=== PATIENT | male | born 1970 | race Caucasian/White ===

== ENCOUNTER 2022-02-07 15:04 | Outpatient (REF) | payer OTHER, SELFPAY ==
--- NOTE | ~2022-02-07 | XR_ITS ---
EXAMINATION: XR CHEST CLINICAL INFORMATION: Unspecified asthma. COMPARISON: None TECHNIQUE: 2 views of the chest were obtained. FINDINGS: The lungs are hyperinflated but clear of acute pneumonic process. The heart size and pulmonary vascularity is normal. No gross bony abnormality seen. XR/XR chest 2V IMPRESSION: Unremarkable chest examination.
== END 2022-02-07 15:05 | disposition home or self-care (01) ==
LOC: HO.HMGCX 15:04
PROVIDERS: Visit Provider Internal Medicine
DX: J45.909 Unspecified asthma, uncomplicated (principal)
CPT/HCPCS: 71046

== ENCOUNTER 2023-07-02 13:44 | Outpatient (AMB) | payer OTHER, SELFPAY ==
--- NOTE | 2023-07-02 13:46 | MHC.OFFWIV ---
Intake Vital Signs 07/02/23 13:52 Height 5 ft 11 in Weight 123.916 kg BMI 38.1 BP 128/64 Blood Pressure Location Lt brachial Position Sitting Pulse 95 Pulse Source Pulse Oximeter Temp 97.6 F Temp Source Temporal Artery Scan Pulse Oximetry (%) 96 Oxygen Delivery Method Room Air Intake Visit Reasons: EP Wheezing, Cough (masked) Intake Note: Pt is here c/o wheezing and cough for the last two days. Pt is requesting a work note for 07/03/23. Patient Tobacco Use Status: Never used Tobacco Allergies No Known Allergies Allergy (Verified 07/02/23 13:47) Do you need a note to return to daycare/school/sports/work: Yes HPI HPI Comments History of Present Illness Details [id number] 53-year-old male presents with fatigue malaise, wheezing, productive cough for the past 2 days, patient has history of asthma, tells me this feels like his typical asthma exacerbation with a URI starting. Patient has albuterol, montelukast, Symbicort at home. Patient denies chest pain, shortness of breath, nausea, vomiting, abdominal pain, fevers, chills, recent sick contacts, headache, vision changes, dizziness and weakness. Physical exam with significant expiratory wheezes throughout all lung dubon Likely viral illness versus acute asthma exacerbation vs bronchitis (most likely). Unlikely PE, pneumonia, ACS. No signs of acute respiratory distress at this time Will give duoneb here Plan prednisone, albuterol, doxy. Will send benzonatate for cough. Educated patient on diagnosis and treatment plan, answered all question, patient verbalizes understanding. At this time patient will be discharged home, advised to return with new or worsening symptoms. Educated on worrisome signs and symptoms and when to return. At this time I feel comfortable discharge home. [facility] Social History Patient Tobacco Use Status: Never used Tobacco Review of Systems Const Details: Constitutional : No Weight loss, No Fever, No Chills, + Fatigue, + Malaise ENT/Mouth : No sore throat, No Rhinorrhea Eyes: No Eye Pain, No Swelling, No Redness Cardiovascular : No Chest Pain, No SOB, No Dyspnea on Exertion, No Orthopnea, No Edema, No Palpitations Respiratory : + Cough, + Sputum, + Wheezing Gastrointestinal : No Nausea, No Vomiting, No Diarrhea, No Constipation, No abdominal Pain, No Hematochezia, No Melena Genitourinary : No Dysuria, No Urinary Frequency, No Hematuria, Musculoskeletal : No joint pain, No Myalgias, No Joint Swelling Skin : No Skin Lesions, No rash Neuro : No Weakness, No Numbness, No Dizziness, No Headache Psych : No Anxiety/Panic, No Depression All other systems reviewed and are negative All systems reviewed & are unremarkable except as noted in HPI and below Physical Exam Vital Signs: Last Vital Signs Temp 97.6 F 07/02/23 13:52 Pulse 95 07/02/23 13:52 BP 128/64 07/02/23 13:52 Pulse Ox 96 07/02/23 13:52 Oxygen Delivery Method Room Air 07/02/23 13:52 BMI result Body Mass Index 38.1 vss Appearance: Alert.? Oriented X3.? No acute distress.? Head: Normocephalic, atraumatic, no step-offs or deformities Eyes: Pupils equal, round and reactive to light.?? CVS: Normal heart rate and rhythm.? Pulses normal.? Respiratory: No respiratory distress.? Breath sounds w/ significant expiratory wheeze b/l throughout all lung dubon. Speaking in full sentences no use of accessory muscles Abdomen: Soft and nontender.? Skin: Skin warm and dry.? Normal skin color.? Normal skin turgor.? Extremities: No lower extremity edema.? No calf ttp. 5/5 strength to bilateral upper and lower extremities Back: No midline tenderness, no C-spine tenderness, full range of motion, no CVA tenderness bilaterally Neuro: Oriented X 3.? No motor deficit.? No sensory deficit. CN 2-12 intact Assessment & Plan Assessment & Plan (1) Bronchitis: Code(s): J40 - Bronchitis, not specified as acute or chronic Plan Take your medications as prescribed. If you were prescribed antibiotics today, it is important that you take your medication to their entirety, do not skip any doses, do not finish them early. Follow-up with your primary care provider this week. Return to the emergency department with new or worsening symptoms. Such as fevers, chills, chest pain, shortness of breath, nausea, vomiting, dizziness, headache, vision changes, lethargy In case of emergency call 911 Please closely monitor your sugars have they go up it is likely secondary to acute steroid use, if they are greater than 400 or 500 or if you have symptoms of hyperglycemia please seek medical attention Orders: Orders AMB Nebulizer Treatment Today J40 - Bronchitis, not specified as acute or chronic Medications: New ipratropium-albuterol 0.5 mg-3 mg(2.5 mg base)/3 mL 3 mL inhalation ONCE 3 mL 0RF J40 - Bronchitis, not specified as acute or chronic prednisone 40 mg (2 x 20 mg) PO DAILY 5 days 10 tabs 0RF albuterol sulfate 90 mcg/actuation 2 puffs inhalation Q6H PRN 6.7 grams 0RF shortness of breath or wheezing benzonatate 100 mg PO BID PRN 14 caps 0RF cough doxycycline hyclate 100 mg PO BID 7 days 14 caps 0RF Coding Level of Care Code Est Pt Level 3 (18341) Diagnoses Bronchitis J40
[2023-07-02 13:52] VITALS: BP 128/64; PULSE 95; TEMP 36.4; O2SAT 96; BMI 38.1
== END 2023-07-02 14:19 | disposition home or self-care (01) ==
PROVIDERS: PCP Internal Medicine; Visit Provider Physician Assistant
DX: J40 Bronchitis, not specified as acute or chronic (principal)
CPT/HCPCS: 94640; 99213; J7620

== ENCOUNTER 2023-12-18 12:06 | Outpatient (AMB) | payer OTHER, SELFPAY ==
[2023-12-18 12:07] VITALS: BP 144/82; PULSE 83; TEMP 36.6; O2SAT 90; BMI 39.5
--- NOTE | 2023-12-18 12:07 | AM.OFFWIN_ITS ---
Intake Vital Signs 3 12/18/23 12:07 Height 5 ft 11 in Weight 283 lb 6 oz BMI 39.5 BP 144/82 H Blood Pressure Location Rt brachial Position Sitting Pulse 83 Pulse Source Pulse Oximeter Temp 97.9 F Temp Source Oral Pulse Oximetry (%) 90 L Oxygen Delivery Method Room Air Intake Visit Reasons: EP RT eye staff infection swollen Intake Note: Pt is here today for Rt eye swollen, pt states he noticed it yesterday. Rt eye burn and itches and also sore. Patient Tobacco Use Status: Never used Tobacco Allergies No Known Allergies Allergy (Verified 12/18/23 12:12) Medication List - Last Reconciled 12/18/23 by Kaci Vazquez, [place] albuterol sulfate 90 mcg/actuation 2 puffs inhalation Q6H PRN albuterol sulfate 90 mcg/actuation 2 puffs PO Q4H PRN erythromycin 1 appl ophthalmic (eye) DAILY 7 days fluticasone propionate 50 mcg/actuation (Allergy Relief (fluticasone)) 1 spray intranasal BID montelukast 10 mg PO DAILY Symbicort 80-4.5 mcg/actuation (budesonide-formoterol) 2 puffs inhalation BID NS Do you need a note to return to daycare/school/sports/work: No HPI HPI Comments 2 History of Present Illness0 Details 53 y/o male patient presents to walk in clinic with c/o right eye pain, redness and swelling. Reports that symptoms started 3 days ago. Denies vision changes. Reports pain at 4/10 on painscale. Currently on Clindamycin dose for 10 days due to Toe infection. [facility] Social History Patient Tobacco Use Status: Never used Tobacco Review of Systems Const Denies body aches, Denies chills, Denies headache(s) and Denies lethargy Eyes Denies blind spots, Denies blurry vision, Denies exophthalmos, Denies change in vision, Denies diplopia, Reports eye discharge, Reports irritation, Denies loss of peripheral vision, Denies loss of vision, Reports eye pain, Denies seeing flashes and Denies photophobia ENT Reports Normal hearing present, Denies dizziness, Denies ear discharge, Denies otalgia, Denies headache(s) and Denies hoarseness Neuro Reports Normal hearing present, Denies dizziness, Denies headache(s) and Denies loss of vision Physical Exam Vital Signs: Last Vital Signs Temp 97.9 F 12/18/23 12:07 Pulse 83 12/18/23 12:07 BP 144/82 H 12/18/23 12:07 Pulse Ox 90 L 12/18/23 12:07 Oxygen Delivery Method Room Air 12/18/23 12:07 BMI result Body Mass Index 39.5 Const General: comfortable and no acute distress HEENT Head: Yes normocephalic Ears: external ears normal and TM's normal bilaterally General nose exam: Normal nasal mucous membranes and turbinates present Face and sinus: Yes sinuses nontender, Yes face symmetric and Yes erythema (right eye and orbital) Face images: 2 1. Swelling, redness and mild tenderness. Mouth: moist mucous membranes Eyes Periorbital: periorbital findings abnormal right periorbital swelling, periorbital tenderness and periorbital erythema; no crepitus Eyelids: Yes eyelid abnormality (right upper eyelid swelling with redness) Conjunctivae: conjunctival abnormal right conjunctival injection Sclerae: scleral abnormal right scleral exudate Corneas: corneas abnormal on the right Pupils: Equal, round and reactive pupils present EOM: EOMs intact bilaterally Direct Ophthalmoscopy: No photophobia Eyes/upper lids images: 2 1. Swollen right upper eyelid and redness Resp Effort & Inspection: normal respiratory effort Cardio Rate: regular rate Rhythm: regular rhythm Neuro Cranial nerves: Yes Equal, round and reactive pupils present and Yes Normal hearing present Assessment & Plan Assessment & Plan (1) Blepharitis of eyelid of right eye: Code(s): H01.003 - Unspecified blepharitis right eye, unspecified eyelid Qualifiers: Blepharitis type: unspecified type Eyelid: upper Qualified Code(s): H 01.001 - Unspecified blepharitis right upper eyelid Plan: -Eye Abx x 7 days - Instill ~1 cm ribbon into affected eye - Wash eye with warm clean water - Warm compress - Rest - Wash hands frequently Plan - Will Rx Erythro Oint x 7 days - Apply a thin layer before bedtime - Wash hands frequently with soap and water - Warm compre on the eye - Reports any severe pain, headaches and vision changes. Medications: New 2 erythromycin Instill ~1 cm ribbon into the affected eye before Bedtime. 1 appl ophthalmic (eye) DAILY 7 days 3.5 grams 1RF eye infection H01.001 - Unspecified blepharitis right upper eyelid Coding Level of Care Code Est Pt Level 3 (56173) Diagnoses Blepharitis of right upper eyelid, unspecified type H01.001 Blepharitis type: unspecified type Eyelid: upper Time Spent (min) 15
== END 2023-12-18 12:40 | disposition home or self-care (01) ==
PROVIDERS: PCP Internal Medicine; Visit Provider Nurse Practitioner Family
DX: H01.001 Unspecified blepharitis right upper eyelid (principal)
CPT/HCPCS: 99213

== ENCOUNTER 2024-02-23 13:11 | Outpatient (AMB) | payer OTHER, SELFPAY ==
[2024-02-23 13:14] VITALS: BP 150/80; PULSE 86; TEMP 36.6; O2SAT 96; BMI 38.9
--- NOTE | 2024-02-23 13:14 | AM.OFFWIN_ITS ---
Intake Vital Signs 02/23/24 13:14 Height 5 ft 11 in Weight 279 lb BMI 38.9 BP 150/80 H Blood Pressure Location Lt brachial Position Sitting Pulse 86 Pulse Source Pulse Oximeter Temp 97.8 F Temp Source Temporal Artery Scan Pulse Oximetry (%) 96 Oxygen Delivery Method Room Air Intake Visit Reasons: EP Congestion, Wheezing Intake Note: pt is here today for congestion and wheezing started 2 days ago Patient Tobacco Use Status: Never used Tobacco Allergies Penicillins Allergy (Mild, Verified 02/23/24 13:18) hives Do you need a note to return to daycare/school/sports/work: Yes HPI HPI Comments History of Present Illness Details Patient presents to the walk in for 1 week cough, congestion Two days ago steroid up with wheezing, has been using albuterol inhaler and Symbicort without improvement of symptoms Denies fever, chest pain, palpitations, syncope, weakness Denies headache, ear pain, sore throat. Reports history of upper respiratory infection/bronchitis in the past that have responded well to prednisone and Z-Carlos. He is also requesting a refill of his albuterol inhaler Called out sick from work, requesting work note [facility] Social History Patient Tobacco Use Status: Never used Tobacco Review of Systems Const All systems reviewed & are unremarkable except as noted in HPI and below Physical Exam Vital Signs: Last Vital Signs Temp 97.8 F 02/23/24 13:14 Pulse 86 02/23/24 13:14 BP 150/80 H 02/23/24 13:14 Pulse Ox 96 02/23/24 13:14 Oxygen Delivery Method Room Air 02/23/24 13:14 BMI result Body Mass Index 38.9 General: awake, alert, oriented. Answers questions appropriately. Fully engaged in examination. Skin: warm, dry, intact HEENT: TMs intact bilaterally, no redness. Posterior pharynx without erythema or exudate. Sclera without icterus or injection. Cardiac: External chest normal in appearance. Respiratory: +cough. Faint expiratory wheezing bilaterally Abdomen: without gross distension. Neurological: Oriented to person, place, time and situation. Thought process intact. Psychiatric: Appropriate mood and affect. Good judgment and insight. Assessment & Plan Assessment & Plan (1) Asthmatic bronchitis: Code(s): J45.909 - Unspecified asthma, uncomplicated Plan Z-Carlos as directed Prednisone 40 mg p.o. daily x3 days. Patient is known diabetic, he has Itzel CGM. Patient advised to monitor closely and call his primary care doctor for any concerns. Albuterol inhaler 2 puffs every 6 hours as needed. Rest, drink plenty of fluids, tylenol or motrin as needed. Follow up with pcp or in clinic for any new or worsening symptoms. Go to ER for shortness of breath, chest pain, palpitations, weakness, dizziness. All questions and concerns were answered, patient agrees to the plan. Medications: New azithromycin For 250 mg dose pack: take 500 mg today (day 1), then 250 mg for 4 days (days 2-5) PO 6 tabs 0RF prednisone 40 mg (2 x 20 mg) PO DAILY 6 tabs 0RF 3 days Refilled albuterol sulfate 90 mcg/actuation 2 puffs inhalation Q6H PRN 6.7 grams 0RF shortness of breath or wheezing Coding Level of Care Code Est Pt Level 3 (86042) Diagnoses Asthmatic bronchitis J45.909
== END 2024-02-23 14:22 | disposition home or self-care (01) ==
PROVIDERS: PCP Internal Medicine; Visit Provider Registered Nurse Emergency
DX: J45.909 Unspecified asthma, uncomplicated (principal)
CPT/HCPCS: 99213

== ENCOUNTER 2024-02-26 12:56 | Outpatient (AMB) | payer OTHER, SELFPAY ==
[2024-02-26 13:00] VITALS: BP 120/80; PULSE 85; TEMP 36.6; O2SAT 99; BMI 39.0
--- NOTE | 2024-02-26 13:00 | AM.OFFWIN_ITS ---
Intake Vital Signs 02/26/24 13:00 Height 5 ft 11 in Weight 280 lb BMI 39.0 BP 120/80 Blood Pressure Location Lt brachial Position Sitting Pulse 85 Pulse Source Pulse Oximeter Temp 97.8 F Temp Source Temporal Artery Scan Pulse Oximetry (%) 99 Oxygen Delivery Method Room Air Intake Visit Reasons: EP Wheezing/congestion~ Still not better Intake Note: pt is here today for wheezing congestion and dizziness started friday Patient Tobacco Use Status: Never used Tobacco Allergies Penicillins Allergy (Mild, Verified 02/26/24 13:03) hives Do you need a note to return to daycare/school/sports/work: Yes HPI HPI Comments History of Present Illness Details 53 y/o male patient who presents to walk in clinic with c/o SOB, wheezing, cough and chest tightness. Pt was seen this past Friday for similar symptoms. Pt was given Z-pack and prednisone. Pt reports finishing treatment course but symptoms still there. He has been using his rescue inhaler frequently now. [facility] Social History Patient Tobacco Use Status: Never used Tobacco Review of Systems Const All systems reviewed & are unremarkable except as noted in HPI and below Physical Exam Vital Signs: Last Vital Signs Temp 97.8 F 02/26/24 13:00 Pulse 85 02/26/24 13:00 BP 120/80 02/26/24 13:00 Pulse Ox 99 02/26/24 13:00 Oxygen Delivery Method Room Air 02/26/24 13:00 BMI result Body Mass Index 39.0 Const General: comfortable and no acute distress Nutritional Appearance: obese Orientation/consciousness: patient oriented x3 HEENT Head: Yes normocephalic Ears: external ears normal and TM's normal bilaterally General nose exam: Normal nasal mucous membranes and turbinates present and No nasal discharge present Mouth: moist mucous membranes Resp Effort & Inspection: normal respiratory effort and able to speak in complete sentences Auscultation: no crackles, no rales, rhonchi and wheezes Cardio Rate: regular rate Rhythm: regular rhythm Neuro General: patient oriented x3 Office Procedures Nebulizer Treatment Nebulizer Treatment [id number]/MDI RX initial, or Nebulizer Subsequent Treatment Office Meds ipratropium 0.5 mg-albuterol 3 mg (2.5 mg base)/3 mL nebulization soln Performing Provider: Kaci Vazquez NP Performing Location: [facility] [place] Administered by: Kaci Vazquez NP on 02/26/24 13:45 Dose Route Admin Location Dispensed Lot Number Expiration Date NDC Carton Filler 3 mL inhalation 3 mL [id number] 08/24/24 7347-4211-69 [employer] Assessment & Plan Assessment & Plan (1) Asthma exacerbation: Code(s): J45.901 - Unspecified asthma with (acute) exacerbation Qualifiers: Asthma persistence: persistent Asthma severity: moderate Qualified Code(s): J45.41 - Moderate persistent asthma with (acute) exacerbation Plan: - Take Medicine as prescribed - Xray - Neb Tx in office Orders: Orders SARS-CoV2/FLU/RSV Today J45.41 - Moderate persistent asthma with (acute) exacerbation XR chest 2V Today J20.9 - Acute bronchitis, unspecified, J45.41 - Moderate persistent asthma with (acute) exacerbation AMB Nebulizer Treatment Today J45.41 - Moderate persistent asthma with (acute) exacerbation Medications: New prednisone 40 mg (2 x 20 mg) PO DAILY 20 tabs 0RF 10 days J45.41 - Moderate persistent asthma with (acute) exacerbation doxycycline hyclate 100 mg PO BID 20 caps 0RF 10 days J45.41 - Moderate persistent asthma with (acute) exacerbation albuterol sulfate 1.25 mg (3 mL) inhalation Q4-6H PRN 90 mL 0RF shortness of breath or wheezing J45.41 - Moderate persistent asthma with (acute) exacerbation Discontinued azithromycin Discontinued Reason: Patient Completed Course For 250 mg dose pack: take 500 mg today (day 1), then 250 mg for 4 days (days 2-5) PO 6 tabs 0RF Coding Level of Care Code Est Pt Level 4 (00324) Diagnoses Moderate persistent asthma with exacerbation J45.41 Asthma persistence: persistent Asthma severity: moderate CPT Codes Nebulizer Treatment - Nebulizer Treatment, initial or subsequent: 23866- Nebulizer/MDI RX initial, or Nebulizer Subsequent Treatment ([id number]) Time Spent (min) 20
== END 2024-02-26 16:52 | disposition home or self-care (01) ==
PROVIDERS: PCP Internal Medicine; Visit Provider Nurse Practitioner Family
DX: J45.41 Moderate persistent asthma with (acute) exacerbation (principal)
CPT/HCPCS: 94640; 99214; J7620

== ENCOUNTER 2024-02-26 13:28 | Outpatient (REF) | payer OTHER, SELFPAY ==
[2024-02-26 17:15] LABS: Influenza A PCR NEGATIVE (Negative); Influenza B PCR NEGATIVE (Negative); Resp Syncy Virus RNA Qual PCR NEGATIVE (Negative); SARS COV2 PCR INHOUSE NEGATIVE (Negative)
== END 2024-02-26 13:29 | disposition home or self-care (01) ==
LOC: HO.LAB 13:28
PROVIDERS: Visit Provider Nurse Practitioner Family
DX: Z11.52 Encounter for screening for COVID-19 (principal); J45.41 Moderate persistent asthma with (acute) exacerbation
CPT/HCPCS: 0241U

== ENCOUNTER 2024-02-26 13:44 | Outpatient (REF) | payer OTHER, SELFPAY ==
--- NOTE | ~2024-02-26 | XR_ITS ---
EXAMINATION: XR CHEST CLINICAL INFORMATION: Moderate persistent asthma with acute exacerbation COMPARISON: 02/07/2022 TECHNIQUE: 2 views of the chest were obtained. FINDINGS: No significant abnormality is noted involving the heart, lungs, mediastinum, bony thorax or soft tissues. Some minimal bibasilar atelectasis is present XR/XR chest 2V IMPRESSION: Unremarkable examination.
== END 2024-02-26 13:45 | disposition home or self-care (01) ==
LOC: HO.HMGCX 13:44
PROVIDERS: PCP Internal Medicine; Visit Provider Nurse Practitioner Family
DX: J45.41 Moderate persistent asthma with (acute) exacerbation (principal); J20.9 Acute bronchitis, unspecified
CPT/HCPCS: 71046

== ENCOUNTER 2024-10-27 11:22 | Outpatient (REF) | payer OTHER, SELFPAY ==
--- NOTE | ~2024-10-27 | XR_ITS ---
EXAMINATION: XR CHEST CLINICAL INFORMATION: R05.9 - Cough, unspecified. COMPARISON: Chest radiograph dated 02/26/2024. TECHNIQUE: 2 views of the chest were obtained. FINDINGS: Minimal patchy right basilar atelectasis versus very early infiltrate. No pleural effusion or pneumothorax. Stable cardiomediastinal silhouette. XR/XR chest 2V IMPRESSION: Minimal patchy right basilar atelectasis versus very early infiltrate. Electronically signed by: Pato Thornton MD 10/28/2024 11:44 AM [facility]
== END 2024-10-27 11:23 | disposition home or self-care (01) ==
LOC: HO.HMGCX 11:22
PROVIDERS: PCP Internal Medicine; Visit Provider Physician Assistant
DX: R05.9 Cough, unspecified (principal)
CPT/HCPCS: 71046

== ENCOUNTER 2024-10-27 11:22 | Outpatient (AMB) | payer OTHER, SELFPAY ==
--- NOTE | 2024-10-27 11:44 | AM.OFFWIN_ITS ---
Intake Vital Signs 10/27/24 11:48 Height 5 ft 11 in Weight 277 lb BMI 38.6 BP 128/84 Blood Pressure Location Rt brachial Position Sitting Pulse 79 Pulse Source Pulse Oximeter Temp 98.1 F Temp Source Oral Pulse Oximetry (%) 95 Oxygen Delivery Method Room Air Intake Visit Reasons: EP congestestion, pain when cough Intake Note: Patient here for cough that started last week and was seen at urgent care and was given benzonatate which slightly helped but feels like he is still congested and still has cough. Patient Tobacco Use Status: Never used Tobacco Allergies Penicillins Allergy (Mild, Verified 10/27/24 11:49) hives Do you need a note to return to daycare/school/sports/work: No HPI HPI Comments History of Present Illness Details History of Present Illness The patient is a 54-year-old male presenting with respiratory symptoms and concern for potential pneumonia. The patient began experiencing symptoms of congestion 5 days ago. On Friday, the symptoms worsened and included fatigue and persistent cough. No fever, nausea, vomiting, or diarrhea was noted. By Friday, the patient sought care at an urgent care facility in [place], where chest X-rays were performed, returning negative for pneumonia. Despite the negative X-ray, the patient continues to experience fatigue, coughing, and the production of dark green mucus. Additionally, the patient reports discomfort in the upper right lung area, particularly during coughing fits that occur predom inantly at night. The patient has a history of asthma, for which he is taking Montelukast, Symbicort, and uses a rescue inhaler and nebulizer. The patient's symptoms have persisted for less than a week, and recent tests for flu, COVID- 19, and RSV were all negative. He has been using the nebulizer intermittently but has not been on any steroid treatment thus far. Physical Exam General: Cooperative, healthy appearing, comfortable and no acute distress Orientation/consciousness: Patient oriented x3 Limitations: No limitations Head: Normal to inspection Ears: Hearing grossly normal bilaterally, external ears normal and TM's normal bilaterally Nose: Normal external nose present, Normal nares present and No nasal discharge present Face and sinus: Normal facial exam and Yes sinuses nontender Mouth: Normal oral and palatal mucosa present and moist mucous membranes Throat: Yes tonsils normal, Yes uvula midline. Posterior oropharynx erythema Eyes: Appearance normal, both eyes and all related structures Neck: Normal visual inspection Respiratory: expiratory wheezes throughout. Normal respiratory effort, able to speak in complete sentences, no respiratory distress, not tachypneic, no tripod positioning and no use of accessory muscles Cardiovascular: Regular rate and rhythm. Normal S1 and S2 Skin: No rashes or lesions noted Neuro: Patient oriented x3 Extremities: Normal to inspection and Yes no clubbing, cyanosis or edema PFSH Social History Patient Tobacco Use Status: Never used Tobacco Review of Systems Const All systems reviewed & are unremarkable except as noted in HPI and below Physical Exam Vital Signs: Last Vital Signs Temp 98.1 F 10/27/24 11:48 Pulse 79 10/27/24 11:48 BP 128/84 10/27/24 11:48 Pulse Ox 95 10/27/24 11:48 Oxygen Delivery Method Room Air 10/27/24 11:48 BMI result Body Mass Index 38.6 Assessment & Plan Assessment & Plan (1) Asthma exacerbation: Code(s): J45.901 - Unspecified asthma with (acute) exacerbation Qualifiers: Asthma severity: moderate Asthma persistence: persistent Qualified Code(s): J45.41 - Moderate persistent asthma with (acute) exacerbation Plan: Plan - Asthma: Initiate prednisone 50 mg daily for five days as a burst therapy to address asthma exacerbation and respiratory symptoms. The patient is advised to take this in the morning to avoid insomnia. - Upper Respiratory Infection: Prescribe azithromycin Z-Carlos as it may provide anti-inflammatory effects and assist in lung function. The patient is advised to continue using benzonatate to manage cough symptoms and is encouraged to utilize a rescue inhaler during coughing fits and shortness of breath. - Possible Pneumonia: Order repeat chest X-ray to reassess for pneumonia. If pneumonia is confirmed, an additional antibiotic will be prescribed. - The patient is advised to rest, maintain adequate fluid intake, and take today and tomorrow off work. A work note will be provided. Patient was informed and verbally consented to the use of an ambient scribe for clinic note documentation during this visit (2) Lower respiratory infection (e.g., bronchitis, pneumonia, pneumonitis, pulmonitis): Code(s): J22 - Unspecified acute lower respiratory infection Plan: as above Orders: Orders XR chest 2V Today R05.9 - Cough, unspecified Medications: New prednisone 50 mg PO QAM 5 tabs 0RF azithromycin For 250 mg dose pack: take 500 mg today (day 1), then 250 mg for 4 days (days 2-5) PO 6 tabs 0RF Coding Level of Care Code New Pt Level 4 (09213) Diagnoses Moderate persistent asthma with exacerbation J45.41 Asthma severity: moderate Asthma persistence: persistent Lower respiratory infection (e.g., bronchitis, pneumonia, pneumonitis, pulmonitis) J22
[2024-10-27 11:48] VITALS: BP 128/84; PULSE 79; TEMP 36.7; O2SAT 95; BMI 38.6
--- OUTSIDE RECORDS SUMMARY | 2024-11-02 18:05 | XMS_ITS ---
Demographics Address [address] [facility] [facility] [place] [address] Mobile Email Address Preferred Language Unknown Marital Status Unknown Jewish Affiliation Unknown Race Unknown Ethnic Group Unknown Author Organization [facility] Address [address] [facility] [address] [place] [address] Care Team Providers Care Planner Scheduler Name Role Phone Rosie Celine Primary Care Provider PHILLY Fitzgerald Unavailable [phone] ALLERGIES Allergen (clinical drug ingredient) Drug/Non Drug Allergy documented on EMR Reaction Allergy Type Onset Date Status mold (uncoded) Unknown Allergy Activ e penicillin (uncoded) Unknown Allergy Active REASON FOR VISIT 2wk MEDICATIONS Medication SIG (Take, Route, Frequency, Duration) Notes Start Date End Date Status RABEprazole Sodium 20 MG 1 tablet Orally Once a day Active Montelukast Sodium 10 MG 1 tablet Orally Once a day Active Symbicort 160-4.5 MCG/ACT 2 puffs Inhala tion Twice a day Active Trulicity 3 MG/0.5ML as directed Subcutaneous once a week Active Albuterol Sulfate 108 (90 Base) MCG/ACT 1 puff as needed Inhalation every 4 hrs Active metFORMIN HCl ER 500 MG 1 tablet with evening meal Orally Once a day Active Flonase Allergy Relief 50 MCG/ACT 1 spray in each nostril Nasally Once a day PRN Active Rossford 3 1000 MG as directed Orally Active Insulin Glargine 100 UNIT/ML as directed Subcutaneous Not-Taking Dupilumab 300 MG/2ML as directed Subcutaneous Not-Taking Insulin Lispro 100 UNIT/ML as directed Injection Not-Taking methylPREDNISolone 4 MG as directed Orally Not-Taking Breanne Allergy Not- Taking VITAL SIGNS Weight 283.4 lbs 01/21/2024 Height 5ft 11in in 01/21/2024 BMI 39.52 kg/m2 01/21/2024 Heart Rate 92 /min 01/21/2024 Temperature 96.8 degrees Fahrenheit 01/21/20 24 Respiratory Rate 16 /min 01/21/2024 Encounters Encounter Location Date Provider Diagnosis [facility] [address] 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 We discussed mild swelling around the nail bed can last up to 4 weeks following the procedure. He no longer needs to keep the toe covered, but can for protection purposes. We discussed it will take approximately 1 year for the nail to grow back. We discussed when the nail is about 75% grown in, he may feel a sensation similar to an ingrown toenail, but it is temporary and will resolve. I did recommend annual diabetic foot checks with the patient. He will schedule a follow-up in 1 year, but I encouraged the patient to call with any questions or concerned. He is in agreement with this plan. 01/21/2024 Traumatic onycholysis (ICD-10 - L60.1) 01/21/2024 Type 2 diabetes mellitus with other diabetic neurological complication (ICD-10 - E11.49) PLAN OF TREATMENT Treatment Notes Assessment Notes Subungual hematoma of toenai l, left, sequela The nail bed has healed without incident. We discussed mild swelling around the nail bed can last up to 4 weeks following the procedure. He no longer needs to keep the toe covered, but can for protection purposes. We discussed it will take approximately 1 year for the nail to grow back. We discussed when the nail is about 75% grown in, he may feel a sensation similar to an ingrown toenail, but it is temporary and will resolve. I did recommend annual diabetic foot checks with the patient. He will schedule a follow-up in 1 year, but I encouraged the patient to call with any questions or concerned. He is in agreement with this plan. Next Appt Details Follow Up: 1 Year, Reason: Provider Name:PHILLY WOMACK, 01/21/2025 01:00:00 PM, [address], [facility] [address], [place], [address], Progress Notes * Abraham VALENTINEDOB: 2 (53 yo M)Acc No.[id number]:01/21/2024 Progress Notes Patient:??Abraham VALENTINE Provider:??Philly Womack DPM :1970?Age:53 Y?Sex:Santosh le Date:01/21/2024 Phone: Address:[address] [place] [address], [address], [place], [id number] Pcp:Celine Velez Subjective: * Chief Complaints: * ?2wk * HPI: ?Constitutional:? This 53 y/o diabetic male returns to my office s/p 2 weeks from a total nail avulsion of the left big toenail. He states the toe was very sore for the first week after the procedure. He states the toe scabbed after about 5 days from the procedure. He was keeping the area covered until a couple of days ago. He states the toe is still slightly swollen, but he is having no pain. He denies any n/f/v/c/sob. He has no other foot complaints this visit. * ROS:?GENERAL: Pt denies nausea, fever, vomiting, chills, or shortness of breath. Pt in NAD. ALLERGY: patient denies any new allergy HEME/ONC: patient denies any bleeding or clotting disorders CARDIOLOGY: pt denies chest pain, palpitations LUNGS: pt denies shortness of breath ABDOMEN: patient denies any bloating, abdominal pain, or swelling MUSCULOSKELETAL: See HPI, otherwise no joint pain or swelling, back pain, or muscle pain. SKIN: see HPI, otherwise no lesions, rash or itching NEURO: No persistent headache, weakness or numbness PSYCH: patient denies any current anxiety or depression The remainder of the review of systems is noncontributory. * Medical History:?? * Surgical History:??left fing er tendon repair * Hospitalization/Major Diagno stic Procedure:??pneumonia sepsis 2023 * Family History:??Father: dec eased, from assault.??Mother: , diabetes at age 69, stroke at age 64.?? * Social History:?Tobacco: occasional Alcohol: yes, socially. * Medications:??TakingOmega 3 1000 MG Capsule as directed Orally Flonase Allergy Relief 50 MCG/ACT Suspension 1 spray in each nostril Nasally Once a day , Notes to Pharmacist: PRNmetFORMIN HCl ER 500 MG Tablet Extended Release 24 Hour 1 tablet with evening meal Orally Once a day RABEprazole Sodium 20 MG Tablet Delayed Release 1 tablet Orally Once a day Symbicort 160-4.5 MCG/ACT Aerosol 2 puffs Inhalation Twice a day Montelukast Sodium 10 MG Tablet 1 tablet Orally Once a day Albuterol Sulfate 108 (90 Base) MCG/ACT Aerosol Powder Breath Activated 1 puff as needed Inhalation every 4 hrs Trulicity 3 MG/0.5ML Solution Pen-injector as directed Subcutaneous , Notes to Pharmacist: once a weekTaking Rossford 3 1000 MG Capsule as directed Orally Taking Flonase Allergy Relief 50 MCG/ACT Suspension 1 spray in each nostril Nasally Once a day , Notes to Pharmacist: PRNTaking metFORMIN HCl ER 500 MG Tablet Extended Release 24 Hour 1 tablet with evening meal Orally Once a day Taking RABEprazole Sodium 20 MG Tablet Delayed Release 1 tablet Orally Once a day Taking Symbicort 160-4.5 MCG/ACT Aerosol 2 puffs Inhalation Twice a day Taking Montelukast Sodium 10 MG Tablet 1 tablet Orally Once a day Taking Albuterol Sulfate 108 (90 Base) MCG/ACT Aerosol Powder Breath Activated 1 puff as needed Inhalation every 4 hrs Taking Trulicity 3 MG/0.5ML Solution Pen-injector as directed Subcutaneous , Notes to Pharmacist: once a weekNot-TakingAllegra Allergy methylPREDNISolone 4 MG Tablet Therapy Pack as directed Orally Insulin Lispro 100 UNIT/ML Solution as directed Injection Insulin Glargine 100 UNIT/ML Solution as directed Subcutaneous Dupilumab 300 MG/2ML Solution Prefilled Syringe as directed Subcutaneous Medication List reviewed and reconciled with the patientNot-Taking Breanne Allergy Not-Taking methylPREDNISolone 4 MG Tablet Therapy Pack as directed Orally Not-Taking Insulin Lispro 100 UNIT/ML Solution as directed Injection Not-Taking Insulin Glargine 100 UNIT/ML Solution as directed Subcutaneous Not-Taking Dupilumab 300 MG/2ML Solution Prefilled Syringe as directed Subcutaneous Medication List reviewed and reconciled with the patient * Allergies:??moldpenicillinno [Allergies Verified] Objective: * Vitals:??Wt:283.4lbs, Ht: 5f t 11in, BMI:39.52Index, HR:92/min, Temp:96.8F, RR:16/min, Ht-cm: 180.34, Wt-k.55 kg. * Examination: ?General Examination: ?GENERAL: Patient appears well nourished, with NAD. ?VASCULAR: Dorsalis pedis pulses are 2/4 bilaterally and Posterior tibial pulses are 2/4 bilaterally. Capillary filling time within normal limits the digits. Denies rest pain or claudication pain. Each foot temperature is within normal limits. ?NEUROLOGICAL: Sharp/dull sensation intact bilaterally, position sense intact bilaterally to the tibial tuberosity. ?ORTHOPEDIC: Good muscle strength 4+/5 of all flexors and extensors. Dorsi flexion of ankle ,0 degrees, plantar flexion WNL. No muscle atrophy. ?DERMATOLOGICAL: Trace edema of the left hallux, healing nail bed with scabbing, no erythema, no acute signs of infection, no pain on palpation. ?SHOES: boots. Assessment: * Assessment: 1.??Subungual hematoma of to enail, left, sequela - S90.222S (Primary)??2.??Traumatic onycholysis - L60.1??3.??Type 2 diabetes mellitus with other diabetic neurological complication - E11.49?? Plan: * Treatment: * Procedure Codes:?? * Follow Up:??1 Year * Billing Information: * Visit Code:?? 12510 Office Visit, Est Pt., Level 3. * Procedure Codes:?? * Sign off status: Completed true * Provider:??Philly Womack DPM Date: ??01/21/2024 History and Physical Notes * HPI (History of Present Illness) Category Sub-Category Detail Notes Category Not es Constitutional This 53 y/o d iabetic male returns to my office s/p 2 weeks from a total nail avulsion of the left big toenail. He states the toe was very sore for the first week after the procedure. He states the toe scabbed after about 5 days from the procedure. He was keeping the area covered until a couple of days ago. He states the toe is still slightly swollen, but he is having no pain. He denies any n/f/v/c/sob. He has no other foot complaints this visit. Examination Category Sub-Category Detail Notes Category Not es General Examination GENERAL: Patient appears well nourished, with NAD. VASCULAR: Dorsalis pedis pulses are 2/4 bilaterally and Posterior tibial pulses are 2/4 bilaterally. Capillary filling time within normal limits the digits. Denies rest pain or claudication pain. Each foot temperature is within normal limits. NEUROLOGICAL: Sharp/dull sensation intact bilaterally, position sense intact bilaterally to the tibial tuberosity. ORTHOPEDIC: Good muscle strength 4+/5 of all flexors and extensors. Dorsi flexion of ankle ,0 degrees, plantar flexion WNL. No muscle atrophy. DERMATOLOGICAL: Trace edema of the left hallux, healing nail bed with scabbing, no erythema, no acute signs of infection, no pain on palpation. SHOES: boots
--- OUTSIDE RECORDS SUMMARY | 2024-11-02 18:06 | XMS_ITS ---
Demographics Address [address] [facility] [address] [place] [address] Mobile Email Address Preferred Language Unknown Marital Status Unknown Congregation Affiliation Unknown Race Unknown Ethnic Group Unknown Author Organization [facility] Address [address] [facility] [address] [place] [address] Care Team Providers Care Color Worker Name Role Phone Evlez Stormruth Primary Care Provider UnavailPHILLY Haskins Unavailable [phone] ALLERGIES Allergen (clinical drug ingredient) Drug/Non Drug Allergy documented on EMR Reaction Allergy Type Onset Date Status mold (uncoded) Unknown Allergy Activ e penicillin (uncoded) Unknown Allergy Active REASON FOR VISIT Lt great toe swollen red, and warm to the touch. PT went to [facility] ER on 12/15/2023 and was prescribed Antibiotics. MEDICATIONS Medication SIG (Take, Route, Frequency, Duration) Notes Start Date End Date Status Trulicity 3 MG/0.5ML as directed Subcutaneous once a week Active Albuterol Sulfate 108 (90 Base) MCG/ACT 1 puff as needed Inhalation every 4 hrs Active Montelukast Sodium 10 MG 1 tablet Orally Once a day Active Symbicort 160-4.5 MCG/ACT 2 puffs Inhala tion Twice a day Active Dupilumab 300 MG/2ML as directed Subcutaneous Not-Taking RABEprazole Sodium 20 MG 1 tablet Orally Once a day Active methylPREDNISolone 4 MG as directed Orally Not-Taking metFORMIN HCl ER 500 MG 1 tablet with evening meal Orally Once a day Active Insulin Glargine 100 UNIT/ML as directed Subcutaneous Not-Taking Insulin Lispro 100 UNIT/ML as directed Injection Not-Taking Breanne Allergy Not- Taking Flonase Allergy Relief 50 MCG/ACT 1 spray in each nostril Nasally Once a day PRN Active Stow 3 1000 MG as directed Orally Active PROBLEMS Problem Type ICD Code Onset Dates Problem Status W/U Status Risk SNOMED Code Notes Problem Type 2 diabetes mellitus with other diabetic neurological complication (E11.49) Active confirmed 58956410 VITAL SIGNS Weight 286.2 lbs 01/01/2024 Height 5ft 11in in 01/01/2024 BMI 39.91 kg/m2 01/01/2024 Heart Rate 79 /min 01/01/2024 Temperature 97.2 degrees Fahrenheit 01/01/20 24 Respiratory Rate 16 /min 01/01/2024 Encounters Encounter Location Date Provider Diagnosis [facility] [address] [facility] [address] [place] [address] 01/01/2024 PHILLY WOMACK Subungual hematoma o f toenail, left, sequela S90.222S ; Traumatic onycholysis L60.1 and 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.49 ASSESSMENTS Encounter Date Diagnosis Assessment Notes Treatment Notes Treatment Clinical Notes Section Notes 01/01/2024 Subungual hematoma of toenail, left, sequela (ICD-10 - S90.222S) This is an outpatient visit for evaluation and management of a new patient, which required appropriate review of pertinent medical history, review of any previous imaging, review of all previous records, and examination and complex decision making. Time was 45 minutes spent in review of all these facets including face to face discussion with the patient regarding my findings and in discussion of a current and future treatment plan. I explained that he has a subungual hematoma under the toenail causing the nail separation from the skin. I explained due to the separation, the proximal aspect of the toenail is starting to lift. I explained this is causing tenting of the skin and can break through, causing a wound. My recommendation because he is a diabetic is to remove the toenail which will drain the hematoma, and allow a new nail to grow in without complications. He is in agreement with this plan. Letter written for the patient to remain out of work for the next 2 days. Discussed a total nail avulsion procedure with the patient. The patient agreed to said procedure and consent was signed. As described above, a total nail avulsion of the left hallux toenail was performed. Pt tolerated well. Post-procedure instructions were given to the patient. They are to remove the initial bandage 24hrs after the procedure. Bacitracin and band aid are to be applied to the toe for the next 7-14 days. Pt to return in 2 weeks for a follow-up to the procedure. 01/01/2024 Traumatic onycholysis (ICD-10 - L60.1) 01/01/2024 Type 2 diabetes mellitus with other diabetic neurological complication (ICD-10 - E11.49) PLAN OF TREATMENT Treatment Notes Assessment Notes Subungual hematoma of toenai l, left, sequela This is an outpatient visit for evaluation and management of a new patient, which required appropriate review of pertinent medical history, review of any previous imaging, review of all previous records, and examination and complex decision making. Time was 45 minutes spent in review of all these facets including face to face discussion with the patient regarding my findings and in discussion of a current and future treatment plan. I explained that he has a subungual hematoma under the toenail causing the nail separation from the skin. I explained due to the separation, the proximal aspect of the toenail is starting to lift. I explained this is causing tenting of the skin and can break through, causing a wound. My recommendation because he is a diabetic is to remove the toenail which will drain the hematoma, and allow a new nail to grow in without complications. He is in agreement with this plan. Letter written for the patient to remain out of work for the next 2 days. Discussed a total nail avulsion procedure with the patient. The patient agreed to said procedure and consent was signed. As described above, a total nail avulsion of the left hallux toenail was performed. Pt tolerated well. Post-procedure instructions were given to the patient. They are to remove the initial bandage 24hrs after the procedure. Bacitracin and band aid are to be applied to the toe for the next 7-14 days. Pt to return in 2 weeks for a follow-up to the procedure. Next Appt Details Follow Up: 2 Weeks, Reason: Provider Name:PHILLY WOMACK, 01/21/2025 01:00:00 PM, [address] [address], [place], [address], Progress Notes * Abraham VALENTINEDOOmar: 2 (53 yo M)Acc No.[id number]:01/01/2024 Progress Notes Patient:??MEMEAbraham Provider:??Philly Womack DPM :1970?Age:53 Y?Sex:Santosh dominique Date:01/01/2024 Phone: Address:[address], [address], [place], [id number] Pcp:Celine Velez Subjective: * Chief Complaints: * ?Lt great toe swollen r ed, and warm to the touch. PT went to [facility] ER on 12/15/2023 and was prescribed Antibiotics. * HPI: ?Constitutional:? This 53 y/o diabetic male presents to my office for a complaint of a resolving infection of his left big toe. He states about 3 weeks ago, he was driving down to [place] for a . He states upon returning from that trip he noticed the toe was black and blue, red, and swollen. He does not recall any injury or trauma to the toe. 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 He went to [facility] emergency room due to his concern of infection due to being a diabetic. He was given Clindamycin. He states the redness and swelling of the toe has improved with the antibiotics. He is on his last dose today. He states the nail looks renner. He has some bruising at the base of the nail. He states there is no pain. He denies any n/f/v/c/sob. His last hgba1c was 6.9. He has no other foot complaints this visit. Allergies and medical history reviewed. * ROS:?GENERAL: Pt denies nausea, fever, vomiting, [...] repair * Hospitalization/Major Diagno stic Procedure:??pneumonia sepsis 2022 * Family History:??Father: dec eased, from assault.??Mother: [...] , Notes to Pharmacist: once a weekTaking Stow 3 1000 MG Capsule as directed Orally [...] patient * Allergies:??moldpenicillinno [Allergies Verified] Objective: * Vitals:??Wt:286.2lbs, Ht: 5f t 11in, BMI:39.91Index, HR:79/min, Temp:97.2F, RR:16/min, Ht-cm: 180.34, Wt-k.82 kg. * Examination: ?General Examination: ?GENERAL: Patient [...] plantar flexion WNL. No muscle atrophy. ?DERMATOLOGICAL: subungual hematoma of the left hallux toenail, proximal 80% of the nail is involved, onycholysis of the proximal aspect of the nail including the nail bed under the skin with tenting. Resolving ecchymosis around the proximal nail fold, no pain on palpation. ?SHOES: boots. Therapeutic Interventions: Assessment: * Assessment: 1.??Subungual hematoma of to enail, left, sequela - S90.222S (Primary)??2.??Traumatic onycholysis - L60.1??3.??Type 2 diabetes mellitus with other diabetic neurological complication - E11.49?? Plan: * Treatment: * Procedures:?Procedure: The patient's left foot was prepped with iodine solution and sterile draping was applied. Local anesthesia was applied in a digital nerve block fashion around the left hallux. 4cc of a 1:1mix of 1% lidocaine plain and 0.5% Marcaine plain was used. Pt tolerated the injection well. Anesthesia was tested with a 1-2 forceps. Using a freer elevator, the nail bed was freed dorsally and plantarly. Approximately 2cc of blood was drained from under the toenail. Straight hemostats were used to remove the left hallux toenail. The area was then inspected, and no other nail remnants were seen. The area was cleansed, all bleeding was controlled with pressure. A dressing was applied to the left hallux consisting of bacitracin, gauze and Elastoplast tape. Pt tolerated the procedure well. ? * Procedure Codes:??96672 GUILLERMO MELANI OF NAIL PLATE, Modifiers: TA * Follow Up:??2 Weeks * Billing Information: * Visit Code:?? 74069 Office Visit, New Pt., Level 3. Modifiers: 25 * Procedure Codes:?? 90912 REMOVAL OF NAIL PLATE. Modifiers: TA * Sign off status: Completed true * Provider:??Philly Womack DPM Date: ??01/01/2024 History and Physical Notes * HPI (History of Present Illness) Category Sub-Category Detail Notes Category Not es Constitutional This 53 y/o d iabetic male presents to my office for a complaint of a resolving infection of his left big toe. He states about 3 weeks ago, he was driving down to [place] for a . He states upon returning from that trip he noticed the toe was black and blue, red, and swollen. He does not recall any injury or trauma to the toe. 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 He went to [facility] emergency room due to his concern of infection due to being a diabetic. He was given Clindamycin. He states the redness and swelling of the toe has improved with the antibiotics. He is on his last dose today. He states the nail looks renner. He has some bruising at the base of the nail. He states there is no pain. He denies any n/f/v/c/sob. His last hgba1c was 6.9. He has no other foot complaints this visit. Allergies and medical history reviewed. Examination Category Sub-Category Detail Notes Category Not [...] plantar flexion WNL. No muscle atrophy. DERMATOLOGICAL: subungual hematoma of the left hallux toenail, proximal 80% of the nail is involved, onycholysis of the proximal aspect of the nail including the nail bed under the skin with tenting. Resolving ecchymosis around the proximal nail fold, no pain on palpation. SHOES: boots
--- OUTSIDE RECORDS SUMMARY | 2024-11-02 18:06 | XMS_ITS | Patient Health Record ---
Author Organization [facility] Address [address] [facility] [address] [place] [address] Care Team Providers Care Local Coordinator Name Role Phone Celine Velez Primary Care Provider KOLE Fitzgerald Unavailable [phone] ALLERGIES Allergen (clinical drug ingredient) Drug/Non Drug Allergy documented on EMR Reaction Allergy Type Onset Date Status mold (uncoded) Unknown Allergy Activ e penicillin (uncoded) Unknown Allergy Active REASON FOR REFERRAL No Information MEDICATIONS Medication SIG (Take, Route, Frequency, Duration) Notes Start Date End Date Status Insulin Glargine 100 UNIT/ML as directed Subcutaneous Not-Taking Insulin Lispro 100 UNIT/ML as directed Injection Not-Taking Dupilumab 300 MG/2ML as directed Subcutaneous Not-Taking Trulicity 3 MG/0.5ML as directed Subcutaneous once a week Active Albuterol Sulfate 108 (90 Base) MCG/ACT 1 puff as needed Inhalation every 4 hrs Active methylPREDNISolone 4 MG as directed Orally Not-Taking Breanne Allergy Not- Taking RABEprazole Sodium 20 MG 1 tablet Orally Once a day Active metFORMIN HCl ER 500 MG 1 tablet with evening meal Orally Once a day Active Montelukast Sodium 10 MG 1 tablet Orally Once a day Active Symbicort 160-4.5 MCG/ACT 2 puffs Inhala tion Twice a day Active Flonase Allergy Relief 50 MCG/ACT 1 spray in each nostril Nasally Once a day PRN Active [place] 3 1000 MG as directed Orally Active PROBLEMS Problem Type ICD Code Onset Dates Problem Status W/U Status Risk SNOMED Code Notes Problem Type 2 diabetes mellitus with other diabetic neurological complication (E11.49) Active confirmed 70419081 VITAL SIGNS Heart Rate 92 /min 01/21/2024 Temperature 96.8 degrees Fahrenheit 01/21/2024 Respiratory Rate 16 /min 01/21/2024 Height 5ft 11in in 01/21/2024 Weight 283.4 lbs 01/21/2024 BMI 39.52 kg/m2 01/21/2024 Encounters Encounter Location Date Provider Diagnosis [facility] [address] 01/01/2024 KOLE GODINEZ Subungual hematoma o f toenail, left, sequela S90.222S ; Traumatic onycholysis L60.1 and 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.49 [facility] [address] 01/21/2024 KOLE GODINEZ Subungual hematoma o f toenail, left, sequela S90.222S ; Traumatic onycholysis L60.1 and 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.49 [facility] [address] 01/05/2024 KOLE GODINEZ ASSESSMENTS Encounter Date Diagnosis Assessment Notes Treatment Notes Treatment Clinical Notes Section Notes 01/01/2024 Traumatic onycholysis (ICD-10 - L60.1) 01/01/2024 Subungual hematoma of toenail, left, sequela [...] weeks for a follow-up to the procedure. 01/21/2024 Subungual hematoma of toenail, left, sequela [...] He is in agreement with this plan. 01/01/2024 Type 2 diabetes mellitus with other diabetic neurological complication (ICD-10 - E11.49) 01/21/2024 Traumatic onycholysis (ICD-10 - L60.1) 01/21/2024 Type 2 diabetes mellitus with other diabetic neurological complication (ICD-10 - E11.49) PLAN OF TREATMENT Next Appt Details Provider Name:KOEL GODINEZ, 01/21/2025 01:00:00 PM, [address] [facility] [address], [address], Insurance Providers Payer Name Payer Address Payer Phone Subscriber Number Group Number Insured Name Patient Relationship to Insured Coverage Start Date Coverage End Date Lea NEUM[address] [place] [phone] [id number] Abraham Peralta Self - patient is the insured [facility] [address] [facility] [address] [place] [phone] [id number] Abraham Peralta Self - patient is the insured MEDICAL (GENERAL) HISTORY Medical History History ICD Code emphysema type II diabetes obstructive sleep apnea obesity ventral hernia allergic rhinitis GERD (gastroesophageal reflux disease) asthma + COVID 2020 not COVID vaccinated Surgical History Surgery Date(Month/Year) left finger tendon repair Hospitalization History Reason Date(Month/Year) sepsis 2022 pneumonia
--- OUTSIDE RECORDS SUMMARY | 2024-11-02 18:06 | XMS_ITS ---
Demographics Address [address] [place] [address] Mobile Email Address Preferred Language Unknown Marital Status Unknown Yarsani Affiliation Unknown Race Unknown Ethnic Group Unknown Author Organization [facility] Address [address] [address] Care Team Providers Care Psychology Lecturer Name Role Phone Celine Velez Primary Care Provider KOLE Fitzgerald [phone] REASON FOR VISIT Work note Encounters Encounter Location Date Provider Diagnosis [facility] [address] [address] 01/05/2024 KOLE GODINEZ PLAN OF TREATMENT Next Appt Details Provider Name:KOLE GODINEZ, 01/21/2025 01:00:00 PM, [address] [address], [place], [address], Progress Notes * Abraham VALENTINEDOB: 2 (53 yo M)Acc No.[id number]:01/05/2024 Patient:??MEMEAbraham LOPEZ :1970?Age:53 Y?Sex:Ma le Phone: Address:[address] [place] [address], [address], [place] [address] * true * Date:??
== END 2024-10-27 12:40 | disposition home or self-care (01) ==
PROVIDERS: PCP Internal Medicine; Visit Provider Physician Assistant
DX: J45.41 Moderate persistent asthma with (acute) exacerbation (principal); J22 Unspecified acute lower respiratory infection

== ENCOUNTER 2024-12-16 13:04 | Outpatient (AMB) | payer OTHER, SELFPAY ==
--- NOTE | 2024-12-16 13:55 | MHC.OFFWIV ---
Intake Vital Signs 12/16/24 13:58 Weight 279 lb BP 130/82 Blood Pressure Location Lt brachial Position Sitting Pulse 90 Pulse Source Pulse Oximeter Temp 98.2 F Temp Source Oral Pulse Oximetry (%) 92 Oxygen Delivery Method Room Air Intake Visit Reasons: EP wheezing, SOB,coughing Intake Note: Patient here for wheezing,cough and sob that has been present for the past 3-4 days. Patient Tobacco Use Status: Never used Tobacco Allergies Penicillins Allergy (Mild, Verified 12/16/24 13:59) hives Do you need a note to return to daycare/school/sports/work: No HPI HPI Comments History of Present Illness Details History - The patient is a 54-year-old male presenting with a persistent cough and respiratory symptoms, initially related to a diagnosis of bacterial pneumonia approximately six weeks prior. - Previous treatment included prednisone, azithromycin, and cefpodoxime, mostly resolved . - Increased symptoms have been noted recently, including difficulty breathing, significant mucus production, and an exacerbation of asthma symptoms, worsened by cold exposure. - Patient reports historical allergy to penicillin, though he may have outgrown this sensitivity. Physical Exam General: Cooperative, healthy appearing, comfortable and no acute distress Orientation/consciousness: Patient oriented x3 Limitations: No limitations Head: Normal to inspection Ears: Hearing grossly normal bilaterally, external ears normal and TM's normal bilaterally Nose: Normal external nose present, Normal nares present and No nasal discharge present Face and sinus: Normal facial exam and Yes sinuses nontender Mouth: Normal oral and palatal mucosa present and moist mucous membranes Throat: Yes tonsils normal, Yes uvula midline. Posterior oropharynx erythema with red patchiness, no exudates Eyes: Appearance normal, both eyes and all related structures Neck: Normal visual inspection Respiratory: bronchovesicular lung sounds with exp wheezes. Normal respiratory effort, able to speak in complete sentences, Actively coughing, no respiratory distress, not tachypneic, no tripod positioning and no use of accessory muscles. Wheezing present, snoring sounds in lungs Cardiovascular: Regular rate and rhythm. Normal S1 and S2 Skin: No rashes or lesions noted Neuro: Patient oriented x3 Extremities: Normal to inspection and Yes no clubbing, cyanosis or edema PFSH Social History (Reviewed 02/23/24 @ 14:00 by Cally Ramirez, DIRECTOR OF PROPERTY MANAGEMENT, DIRECTOR GLOBAL MEDICAL AFFAIRS) Patient Tobacco Use Status: Never used Tobacco Review of Systems Const All systems reviewed & are unremarkable except as noted in HPI and below Physical Exam Vital Signs: Last Vital Signs Temp 98.2 F 12/16/24 13:58 Pulse 90 12/16/24 13:58 BP 130/82 12/16/24 13:58 Pulse Ox 92 12/16/24 13:58 Oxygen Delivery Method Room Air 12/16/24 13:58 Assessment & Plan Assessment & Plan (1) Lower respiratory infection (e.g., bronchitis, pneumonia, pneumonitis, pulmonitis): Code(s): J22 - Unspecified acute lower respiratory infection Plan: O2 sat 92% on RA. The patient's current symptoms suggest a possible bronchitis or recurrence of pneumonia; hence, a chest X-ray is ordered for further evaluation. Prednisone and ZPak are prescribed right now and we may add cefpodoxime if CXR confirms bacterial involvement and the patient's historical penicillin allergy. Flu, RSV and COVID testing is advised to rule out viral causes. The patient is encouraged to consult with his primary care physician for asthma management review, potentially escalating baseline treatment to avoid exacerbations, +/- a referral by his PCP to a soil fertility extension specialist is suggested to enhance asthma control and prevent future infections. Patient was informed and verbally consented to the use of an ambient scribe for clinic note documentation during this visit (2) Asthma exacerbation: Code(s): J45.901 - Unspecified asthma with (acute) exacerbation Qualifiers: Asthma severity: moderate Asthma persistence: persistent Qualified Code(s): J45.41 - Moderate persistent asthma with (acute) exacerbation Plan: as above Orders: Orders SARS-CoV2/FLU/RSV Today J22 - Unspecified acute lower respiratory infection XR chest 2V Today R05.9 - Cough, unspecified Medications: New azithromycin For 250 mg dose pack: take 500 mg today (day 1), then 250 mg for 4 days (days 2-5) PO 6 tabs 0RF prednisone 50 mg PO QAM 5 tabs 0RF Coding Level of Care Code New Pt Level 4 (37029) Diagnoses Lower respiratory infection (e.g., bronchitis, pneumonia, pneumonitis, pulmonitis) J22 Moderate persistent asthma with exacerbation J45.41 Asthma severity: moderate Asthma persistence: persistent
[2024-12-16 13:58] VITALS: BP 130/82; PULSE 90; TEMP 36.8; O2SAT 92
== END 2024-12-16 15:09 | disposition home or self-care (01) ==
PROVIDERS: PCP Internal Medicine; Visit Provider Physician Assistant
DX: J22 Unspecified acute lower respiratory infection (principal); J45.41 Moderate persistent asthma with (acute) exacerbation

== ENCOUNTER 2024-12-16 13:04 | Outpatient (REF) | payer OTHER, SELFPAY ==
[2024-12-16 18:23] LABS: Influenza A PCR NEGATIVE (Negative); Influenza B PCR NEGATIVE (Negative); Resp Syncy Virus RNA Qual PCR NEGATIVE (Negative); SARS COV2 PCR INHOUSE NEGATIVE (Negative)
== END 2024-12-16 13:05 | disposition home or self-care (01) ==
LOC: HO.LAB 13:04
PROVIDERS: Physician Assistant; PCP Internal Medicine
DX: J22 Unspecified acute lower respiratory infection (principal)
CPT/HCPCS: 0241U

== ENCOUNTER 2024-12-16 14:42 | Outpatient (REF) | payer OTHER, SELFPAY ==
--- NOTE | ~2024-12-16 | XR_ITS ---
EXAMINATION: XR CHEST 2 VIEWS HISTORY: R05.9 - Cough, unspecified COMPARISON: Comparison is made with the prior examination dated 10/27/2024. FINDINGS: PA and lateral views of the chest are submitted. The lungs are expanded and clear. There is no pleural effusion, pneumothorax, or pulmonary vascular congestion. The heart is normal in size. The bones are intact. XR/XR chest 2V IMPRESSION: No acute cardiopulmonary abnormality. Electronically signed by: Arie Marroquin MD 12/16/2024 03:13 PM CHARLEE
== END 2024-12-16 14:43 | disposition home or self-care (01) ==
LOC: HO.HMGCX 14:42
PROVIDERS: PCP Internal Medicine; Visit Provider Physician Assistant
DX: R05.9 Cough, unspecified (principal)
CPT/HCPCS: 71046

== ENCOUNTER → 2024-12-16 14:50 | Outpatient (BNV) | payer OTHER, SELFPAY | PROVIDERS: PCP Internal Medicine; Visit Provider Radiology Diagnostic Radiology | DX: R05.9 Cough, unspecified (principal) | CPT/HCPCS: 71046 ==

== ENCOUNTER 2024-12-22 13:52 | Outpatient (AMB) | payer OTHER, SELFPAY ==
[2024-12-22 13:57] VITALS: BP 140/90; PULSE 87; TEMP 37.1; O2SAT 92
--- NOTE | 2024-12-22 13:57 | AM.OFFWIN_ITS ---
Intake Vital Signs 12/22/24 13:57 Weight 276 lb BP 140/90 H Blood Pressure Location Lt brachial Position Sitting Pulse 87 Pulse Source Pulse Oximeter Temp 98.8 F Temp Source Oral Pulse Oximetry (%) 92 Oxygen Delivery Method Room Air Intake Visit Reasons: EP SOB, fatigue, congested, wheezing Intake Note: Patient here for SOB, rattling in chest that has been present for almost 2 weeks. Patient Tobacco Use Status: Never used Tobacco Allergies Penicillins Allergy (Mild, Verified 12/22/24 14:03) hives Do you need a note to return to daycare/school/sports/work: No HPI HPI Comments History of Present Illness Details Patient is a 54yo M who presents to office with cough Ongoing x 2 weeks + associated rattling in chest and dys pnea Was initially seen 10/27 for PNA and was treated with azithromycin Came here and was seen 12/16/24 for recurrent symptoms and had repeat xray which was negative Had negative flu/covid/rsv swab on that date as well. Was tx with Azithromycin and Prednisone. He said he thought he was getting better but not resolved He said + wheezing Tightness in lungs States mucus doesn't feel like its breaking up Worse when laying down; said it feels like rattle snake Albuterol inhaler and nebulizer prn; using inhaler 3 times a day PFSH Social History Patient Tobacco Use Status: Never used Tobacco Review of Systems Const Denies chills, Reports fatigue and Denies fever(s) Eyes Denies change in vision ENT Denies otalgia, Denies nasal congestion and Denies sore throat Card Denies chest pain, Denies syncope and Reports dyspnea Resp Reports chest congestion, Reports cough, Denies hemoptysis, Reports dyspnea and Reports wheezing GI Denies abdominal pain Musc Denies myalgias Neuro Denies syncope Endo Reports fatigue Aller/Immun Reports wheezing Physical Exam Vital Signs: Last Vital Signs Temp 98.8 F 12/22/24 13:57 Pulse 87 12/22/24 13:57 BP 140/90 H 12/22/24 13:57 Pulse Ox 92 12/22/24 13:57 Oxygen Delivery Method Room Air 12/22/24 13:57 General: Non-toxic, NAD. Speaking full sentences with some shortness of breath noted Skin: Warm dry throughout Eye: EOMI HENT: Oral mucosa dry. + white discharge film noted to dorsal aspect of tongue and lateral mucosa. No tongue edema. Airway patent. Uvula midline. No pharyngeal erythema or edema. No EC TEACHER. Bilateral canals clear. TM non-erythematous, non-bulging. No TM perforation or hemotympanum noted. Respiratory: + wheeze bilaterally. Crackles L base with cough. No tachypnea Cardiac: RRR. No murmur MSK: Full ROM extremities. Neurology: A/lert. No aphasia or facial droop. Gait without abnormality Psych: Good mood and affect Assessment & Plan Assessment & Plan (1) Thrush: Code(s): B37.0 - Candidal stomatitis Plan: Patient seen and evaluated. He was + thrush on examination Will prescribe nystatin rinse Discussed mouth wash after inhaler use Will monitor and any difficulty swallowing, go to ER Patient gave verbal understanding and had no additional questions or concerns at time of discharge (2) Lower respiratory infection (e.g., bronchitis, pneumonia, pneumonitis, pulmonitis): Code(s): J22 - Unspecified acute lower respiratory infection Plan: Pt had 2 chest xrays these last two months; most recent one last week On exam, + crackle with cough in LLL. Concerned Azithromycin only had coverage of atypical bacteria Vital panel wasnegative on last visit; will cover with Doxycycline (with food) Advised to continue breathing tx at home. 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 No alcohol or driving Pt expressed verbal understanding; no additional questions Medications: New doxycycline hyclate 100 mg PO BID 14 caps 0RF nystatin swish and spit 5 mL PO QID 1 week 140 mL 0RF codeine-guaifenesin 10-100 mg/5 mL Lethargy. No alcohol, driving or operating heavy machinery 5 mL PO Q6H PRN 118 mL 0RF cough Coding Level of Care Code Est Pt Level 3 (54817) Diagnoses Thrush B37.0 Lower respiratory infection (e.g., bronchitis, pneumonia, pneumonitis, pulmonitis) J22
--- OUTSIDE RECORDS SUMMARY | 2024-12-22 16:08 | XMS_ITS | Encounter Summary ---
Author Organization [facility] Address [address] [place] [address] Care Team Providers Care Awning Craftsman Name Role Phone Celine Velez MD Primary Care Provider [phone] Reason for Visit * Reason Onset Date Comments psnemonia 11/12/2024 Encounter Details Date Type Department Care Team ([facility] st Contact Info) Description 11/12/2024 Telephone Adult Medicine [facility] [address] [place] [id number] Celine Velez MD [address] [place] [address] psnemonia Social History Tobacco Use Types Packs/Day Years Used Date Smoking Tobacco: Former Cigarettes Smokeless Tobacco: Never Alcohol Use Standard Drinks/Week Comments No 0 (1 standard drink = 0.6 oz pur e alcohol) Sex and Gender Information Value Date Recorded Sex Assigned at Male 11/02/2024 1:42 PM EST Gender Identity Male 11/02/2024 1:42 PM EST Sexual Orientation Straight 11/02/2024 1: 42 PM EST Job Start Date Occupation Industry Not on file Not on file Not on file documented as of this encounter Progress Notes * Cara Marte RN - 11/12/2024 1:40 PM EST Pt was seen at [facility] [place] [place] and was treated for pneumonia . Did a chest xray yesterday and xray was clear C/O right sided chest wall pain with deep breath and cough, denies SOB, able to speak in full sentences and has no audible wheezing, using home care as directed with relief, cough is productive for dark green Sputum, denies fever (has not taken temp) able to take PO with no difficulty, denies N/V/D, Advised home care following the cough Protocol. RN reinforced telephone consultation and advice. Reviewed with the patient the signs and symptoms to watch for that would require immediate attention. If symptoms change, worsen or increase in intensity, to call back immediately. Appointment not available and [place] is [place] [facility] [place] Cara Marte RN - 11/12/2024 1:39 PM EST Pt was seen at [facility] [place] [place] 10/27 with pneumonia and treated, was seen for f/I 11/03 chest xray was clear * Monique Whitaker - 11/12/2024 1:21 PM EST Patient call requires triage: Symptoms patient is presenting: pt has psnemonia, cough, green phlem,upper right side discomfort, wheezing. How long has patient had these symptoms?: 1 week For ALL patients calling to schedule any appointment (routine, sick visit, follow up, consult, etc.) in the outpatient setting please ask the following questions: Do you have fever of higher than 101, sore throat with difficulty swallowing or severe shortness ofbreath? no If YES to any of these above symptoms, send a message to triage and do not book. Red dot. If no, an audio or video visit should be booked. Have you had close contact with someone with Coronavirus in the last 14 days? no Have you traveled abroad? no Have you traveled recently to another state outside of [place], [place], [place], [place], [place], [place], [place]? no o If yes, did you quarantine for 14 days or have a negative covid test? no If yes to any of the above, patient is not to be scheduled in office until after 14 day quarantine or negative covid test. If pain or injury related was it due to an accident at work or from a motor vehicle accident? If yes, date of accident/Injury: No If yes, gather 3rd democrat insurance information Third Democrat Information: not applicable PCP: Celine Velez MD Payor: CIG[employer] / Plan: CIG[employer] PPO / Product Type: *No Product type* / documented in this encounter Plan of Treatment Upcoming Encounters Date Type Department Care Team (Late st Contact Info) Description 12/29/2024 2:20 PM EST Office Visit Pulmonolgy - [place] [address] [place] [address] Ciera Elaine NP [address] [place] [address] 03/07/2025 9:30 AM EDT Office Visit Adult Medicine [facility] [address], [place] [phone] Titi Roland NP [address] [place], [place] documented as of this encounter Visit Diagnoses Not on filedocumented in this encounter Additional Health Concerns Assessment Noted Time PHQ-9 Depression Total Score: 0 11/03/20 24 9:00 AM EST documented as of this encounter Care Teams Awning Craftsman Relationship Specialty Start Date End Date Celine Velez MD [address] [place], [place] PCP - General Internal Medicine 01/20/12 documented as of this encounter
--- OUTSIDE RECORDS SUMMARY | 2024-12-22 16:08 | XMS_ITS | Clinical Summary ---
Author Organization [address] Address [address] [place] [phone] Phone Care Team Providers Care Logistics Vice President Name Role Phone Celine Velez MD Primary Care Provider Allergies No known active allergies Medications Medication Sig Dispensed Refills Start Date End Date Status albuterol 1.25 mg/3 mL nebulizer solution Take 3 mL (1.25 mg total) by nebulization every 4 (four) hours if needed. 02/27/2024 Active FreeStyle Itzel 2 Sensor kit 1 EA. 10/22/2024 Active fluticasone propionate (Flonase Allergy Relief) 50 mcg/actuation nasal spray Administer 1 spray into each nostril 1 (one) time each day at the same time. Active Dupixent Pen 300 mg/2 mL pen Inject 2 mL (300 mg total) under the skin every 14 (fourteen) days. 06/26/2024 Active dupilumab (Dupixent Syringe) 300 mg/2 mL syringe Inject 2 mL (300 mg total) under the skin every 14 (fourteen) days. Active guaiFENesin (HUMIBID 3) 400 mg tablet Take 1 tablet (400 mg total) by mouth every 4 (four) hours. 10/24/2024 Active dulaglutide (Trulicity) 3 mg/0.5 mL pen injector injection Inject 0.5 mL (3 mg total) under the skin 1 (one) time per week. 07/05/2024 Active cefpodoxime (VANTIN) 200 mg tablet Take 1 tablet (200 mg total) by mouth every 12 (twelve) hours. with food 10/27/2024 Active benzonatate (TESSALON) 100 mg capsule Take 1 capsule (100 mg total) by mouth 3 (three) times a day if needed. 10/24/2024 Active metFORMIN XR (GLUCOPHAGE-XR) 500 mg 24 hr tablet Take 1 tablet (500 mg total) by mouth 1 (one) time each day before breakfast. Active omega-3 acid ethyl esters (LOVAZA) 1 gram capsule Take 1 capsule (1 g total) by mouth 2 (two) times a day. 04/23/2022 Active Breyna 160-4.5 mcg/actuation inhaler Inhale 2 puffs by mouth 2 (two) times a day. 1 each 1 11/03/2024 Active albuterol HFA (PROAIR HFA ; PROVENTIL HFA ; VENTOLIN HFA) 90 mcg/actuation inhaler Inhale 2 puffs by mouth every 4 (four) hours if needed for wheezing or shortness of breath. 6.7 g 1 11/03/2024 Active montelukast (SINGULAIR) 10 mg tablet Take 1 tablet (10 mg total) by mouth at bedtime. 90 each 1 11/03/2024 Active blood-glucose meter (FREESTYLE LITE METER MISC) Test fasting glucose daily. GOAL FASTING GLUCOSE 80-120 04/23/2022 Active FREESTYLE LANCETS MISC Test fasting glucose daily 04/23/2022 Active blood sugar diagnostic (FreeStyle Lite Strips) test strip Test fasting glucose daily 04/23/2022 Active insulin glargine (LANTUS) 100 unit/mL injection Inject 30 Units into the skin. 06/18/2022 Active insulin lispro (HumaLOG KwikPen Insulin) 100 unit/mL injection pen INJECT 4-18 UNITS SUBCUTANEOUSLY THREE TIMES A DAY BEFORE MEALS DIRECTED PER SLIDING SCALES 06/18/2022 Active UNABLE TO FIND MIXTURE ADDITIVE Mix equal parts:MAALOX SUSP/LIDOCAINE VISCOUS 2 % MT SOLN/BENADRYL 12.5MG/5ML Swish and spit 10 mL every 4 hours as needed for Pain. Please mix the following in equal parts: MAALOX REGULAR STRENGTH 225-200-25 MG/5ML OR SUSP- ??30cc LIDOCAINE VISCOUS 2 % MT SOLN - 30cc BENADRYL 12.5 MG/5ML OR ELIX - 30cc 08/08/2020 Active inhaler, assist devices (E-Z SPACER MISC) SPACER DEVICE-ADULT use with inhaler 03/11/2012 Active RABEprazole (ACIPHEX) 20 mg EC tablet TAKE 1 TABLET BY MOUTH TWICE DAILY BEFORE MEAL(S). ( NEEDS APPT. FOR FURTHER REFILLS) 60 tablet 11/22/2024 Active Active Problems Problem Noted Date Diagnosed Date Other emphysema 07/10/2022 Type 2 diabetes mellitus 04/23/2022 Obstructive sleep apnea 06/09/2019 Overview (11/10/2024): [facility] Home Sleep Apnea Test: Date 06/03/2019; Wt 283#; BMI 38; TRISTA 7, AI 0; HI 7; Unclassified apneas 0; Obstructive apneas 0; Central apneas 0; Mixed apneas 0; hypopneas 19; average oxygen saturation 91% (lowest 74% with saturations <88% for 5% or more of study) - Obstructive Sleep Apnea - mild; all hypopneas; with sleep related hypoventilation by 2018 home sleep apnea test. Class 2 obesity due to exces s calories without serious comorbidity with body mass index (BMI) of 38.0 to 38.9 in adult 11/28/2017 Ventral hernia 12/12/2014 Allergic rhinitis 03/11/2012 Asthma 12/19/2010 GERD (gastroesophageal reflux disease) 1 Encounters Date Type Department Care Team Description 12/01/2024 [facility] [address] [phone] Titi Roland, IT AUDITOR Forms/questionnaires (Return to work ) 11/12/2024 Telephone Adult Medicine [address] [phone] Celine Velez MD psnemonia 11/11/2024 1:00 PM EST - 11/11/2024 11:59 PM EST Hospital Encounter [address] [phone] Need for tetanus, diphtheria, and acellular pertussis (Tdap) vaccine; Encounter for screening for cardiovascular disorders; Encounter for screening for malignant neoplasm of prostate Discharge Disposition: Home or Self Care 11/04/2024 Telephone Adult Medicine [address] [phone] Celine Velez MD Forms/questionnaires 11/03/2024 8:30 AM EST Office Visit Adult [address] [phone] Titi Roland, IT AUDITOR Pneumonia due to infectious organism, unspecified laterality, unspecified part of lung (Primary Dx); Routine lab draw; Encounter for screening for cardiovascular disorders; Encounter for screening for malignant neoplasm of prostate; Need for tetanus, diphtheria, and acellular pertussis (Tdap) vaccine from Last 3 Months Immunizations Name Administration Dates Next Due Influenza trivalent, 0.5mL, preservative free (Fluarix; FluLaval; Fluzone) ages 6mo and older (Afluria) 3 years and older 12/12/2014 Pneumococcal polysaccharide 23 valent (Pneumovax 23) 2yo and older 12/12/2014 Tdap Tetanus diptheria acell ular pertussis (Boostrix; Adacel) 7yo and older 11/03/2024,07/27/2014 Medical History Medical History Date Comments GERD (gastroesophageal reflu x disease) 12/19/2010 DX:GERD (gastroesophageal re flux disease) Asthma DX:Asthma Ventral hernia DX:Ventral herni a Family History Medical History Relation Name Comments Other: Other Father from asult Diabetes Mother at age 69 Stroke Mother at age 64 Relation Name Status Comments Father Mother Social History Tobacco Use Types Packs/Day Years [...] file Not on file Not on file Obstetrics History Last Filed Vital Signs Vital Sign Reading Time Taken Comments Blood Pressure 137/85 11/03/2024 8:52 AM EST Pulse 91 11/03/2024 8:52 AM EST Temperature 35.8 ??C (96.5 ??F) 11/03/2024 8:52 AM ES T Respiratory Rate 18 11/03/2024 8:52 AM EST Oxygen Saturation 95% 11/03/2024 8:52 AM EST Inhaled Oxygen Concentration - - Weight 126 kg (277 lb 6.4 oz) 11/03/2024 8:52 AM EST Height 175.3 cm (5' 9 ) 11/03/2024 8:52 AM EST Body Mass Index 40.96 11/03/2024 8:52 AM EST Plan of Treatment Upcoming Encounters Date Type Department Care Team (Late st Contact Info) Description 12/29/2024 2:20 PM EST Office Visit Pulmonolgy - [place] [address] [facility] [address] [place] [address] Ciera Elaine NP [address] [facility] [address] [place] [address] 03/07/2025 9:30 AM EDT Office Visit Adult Medicine [facility] [address] [place], [place] [phone] Titi Roland NP [address] [place], [place] Health Maintenance Due Date Last Done Comments Social Influencers of Health Screening 11/02/2022 Diabetes: Annual Retina Eye Exam 01/01/2024 01/01/2023 COVID-19 Vaccine (2023-2 5 season) 2024 Diabetes: Blood Sugar Contro l Test (HGBA1C) 09/10/2024 03/11/2024, 03/11/2024 Diabetes: Annual Foot Exam 02/02/202502/02, 01/28/2024 Diabetes: Annual Urine Albumin-Creatinine Ratio (uACR) 03/11/2025 03/11/2024, 03/11/2024 Diabetes: Annual GFR (Glomerular Filtration Rate) 03/11/2025 03/11/2024 Depression Screening 11/03/2025 11/03/2024 Cholesterol Screening (Lipid Panel) 03/11/2029 03/11/2024, 03/11/2024 Colorectal Cancer Screening: Colonoscopy 05/07/2032 05/07/2022, 05/07/2022 DTaP,Tdap,and Td Vaccines (3 - Td or Tdap) 11/03/2034 11/03/2024, 07/27/2014 Influenza Vaccine Discontinued 12/12/2014 Pneumococcal Vaccine: Pediatrics (0 to 5 Years) and At-Risk Patients (6 to 64 Years) Discontinued 02/22/2023, 12/12/2014 Zoster Vaccines Completed 02/22/2023, 07/23/2022 Hepatitis C Screening Completed 03/11/2024 , 03/11/2024 HIB Vaccines Aged Out No longer eligi ble based on patient's age to complete this topic HIV Screening Discontinued HPV Vaccines Aged Out No longer eligi ble based on patient's age to complete this topic Hepatitis A Vaccines Discontinued Hepatitis B Vaccines Discontinued IPV Vaccines Aged Out No longer eligi ble based on patient's age to complete this topic MMR Vaccines Aged Out No longer eligi ble based on patient's age to complete this topic Meningococcal ACWY Vaccine Aged Out N o longer eligible based on patient's age to complete this topic RSV Immunization Patients Under 20 months Aged Out No longer eligible based on patient's age to complete this topic Varicella Vaccines Aged Out No longer eligible based on patient's age to complete this topic Procedures Procedure Name Priority Date/Time Associated Diagnosis Comments XR CHEST 2 VIEWS Routine 11/11/2024 1:15 PM EST Need for tetanus, diphtheria, and acellular pertussis (Tdap) vaccine Encounter for screening for cardiovascular disorders Encounter for screening for malignant neoplasm of prostate HEPATITIS C SCREENING Routine 03/11/2024 URINE ALBUMIN CREATININE RATIO Routine 03/11/2024 ANNUAL BMP BLOOD TEST Routine 03/11/2024 HEMOGLOBIN A1C Routine 03/11/2024 LIPID PANEL Routine 03/11/2024 DIABETES FOOT EXAM Routine 01/28/2024 COLONOSCOPY Routine 05/07/2022 from Last 3 Months or Most Recently Relevant to Health Maintenance Results * XR Chest 2 Views (11/11/2024 1:15 PM EST) Anatomical Region Laterality Modality Body Radiographic Lashell ging 11/11/2024 1:17 PM EST Impressions 11/11/2024 1:19 PM EST Impression: No acute radiographic findings. -------- FINAL REPORT -------- Dictated By: Casey Cordova Dictated Date: 11/11/2024 13:17 ET Assigned Physician: Casey Cordova Reviewed and Electronically Signed By: Casey Cordova Signed Date: 11/11/2024 13:19 ET Workstation ID: [id number] Transcribed By: Self Edit Transcribed Date: 11/11/2024 13:17 ET Narrative 11/11/2024 1:19 PM EST History: Cough. Chest PA and lateral: The lungs are clear. There are no infiltrates or effusions. ??There is mild hyperinflation unchanged compared to 04/05/2022. ?? The vasculature is not congested. The cardiac and mediastinal silhouettes appear normal. ??Bony structures are radiographically intact. Procedure Note Casey Cordova MD - 11/11/2024 History: Cough. Chest PA and lateral: The lungs are clear. There are no infiltrates oreffusions. There is mild hyperinflation unchanged compared to 04/05/2022.The vasculature is not congested. The cardiac and mediastinalsilhouettes appear normal. Bony structures are radiographically intact. IMPRESSION: Impression: No acute radiographic findings. -------- FINAL REPORT -------- Dictated By: Casey Cordova Dictated Date: 11/11/2024 13:17 ET Assigned Physician: Casey Cordova Reviewed and Electronically Signed By: Casey Cordova Signed Date: 11/11/2024 13:19 ET Workstation ID: [id number] Transcribed By: Self Edit Transcribed Date: 11/11/2024 13:17 ET Titi Roland IT AUDITOR IMG XR PROCEDURES * HM Urine Albumin Creatinine Ratio (03/11/2024) [facility] Urine Albumin Creatinine Ratio abstracted Historical Provider MD MAYCOL TERRY * Annual BMP Blood Test (03/11/2024) [facility] Annual BMP Blood Test abstracted Historical Provider MD MAYCOL TERRY * Hepatitis C Screening (03/11/2024) [facility] Hepatitis C Screening abstracted Historical Provider MD MAYCOL TERRY E * (ABNORMAL) Hemoglobin A1c (03/11/2024) [facility] Hemoglobin A1C 7.0(A) 6.5 % Blood Venous blood specimen / Unknown Historical Provider LAB BLOOD ORDERAB LES * (ABNORMAL) Lipid panel (03/11/2024) [facility] LDL/HDL Ratio 4 0 - 4 Triglycerides 393(A) 0 - 150 mg/dL Cholesterol 222(A) 0 - 200 mg/dL HDL 55 40 mg/dL LDL Cholesterol 89 0 - 100 mg/dL Blood Venous blood specimen / Unknown Historical Provider LAB BLOOD ORDERAB LES * Diabetes Foot Exam (01/28/2024) [facility] Diabetes: Annual Foot Exam abstracted Historical Provider MD MAYCOL TERRY E * Colonoscopy (05/07/2022) [facility] Colonoscopy normal, abstracted Anatomical Region Laterality Modality Other Historical Provider MD MAYCOL TERRY E from Last 3 Months or Most Recently Relevant to Health Maintenance Care Teams Logistics Vice President Relationship Specialty Start Date End Date Celine Velez MD [address], [place] [phone] PCP - General Internal Medicine 01/20/12
--- OUTSIDE RECORDS SUMMARY | 2024-12-22 16:08 | XMS_ITS ---
Demographics Address [address] [place] [address] Mobile Email Address Preferred Language Unknown Marital Status Unknown Temple Affiliation Unknown Race Unknown Ethnic Group Unknown Author Organization [facility] Address [address] [facility] [address] [place] [address] Care Team Providers Care Canoe Builder Name Role Phone Rosie Celine Primary Care Provider PHILLY Fitzgerald Unavailable [phone] Allergies Allergen (clinical drug ingredient) Drug/Non Drug Allergy documented on EMR Reaction Allergy Type Onset Date Status mold (uncoded) Unknown Allergy Activ e penicillin (uncoded) Unknown Allergy Active REASON FOR VISIT 2wk Medications Medication SIG (Take, Route, Frequency, Duration) Notes [...] nostril Nasally Once a day PRN Active [place] 3 1000 MG as directed Orally Active Insulin Glargine 100 UNIT/ML as directed Subcutaneous Not-Taking Dupilumab 300 MG/2ML as directed Subcutaneous Not-Taking Insulin Lispro 100 UNIT/ML as directed Injection Not-Taking methylPREDNISolone 4 MG as directed Orally Not-Taking Breanne Allergy Not- Taking Vital Signs Weight 283.4 lbs 01/21/2024 Height 5ft 11in in 01/21/2024 BMI 39.52 kg/m2 01/21/2024 Heart Rate 92 /min 01/21/2024 Temperature 96.8 degrees Fahrenheit 01/21/20 24 Respiratory Rate 16 /min 01/21/2024 Encounters Encounter Location Date Provider Diagnosis [facility] [address] [place] [address] 01/21/2024 PHILLY WOMACK Subungual hematoma o f toenail, left, sequela S90.222S ; Traumatic onycholysis L60.1 and 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.49 Assessments Encounter Date Diagnosis (ICD Code) Assessment Notes Treatment Notes Treatment Clinical Notes [...] other diabetic neurological complication (ICD-10 - E11.49) Plan Of Treatment Treatment Notes Assessment Notes Subungual hematoma of [...] 01/21/2025 01:00:00 PM, [address], [facility] [address], [place], [address], Progress Notes * Abraham VALENTINEDOB: 2 (53 yo M)Acc No.[id number]:01/21/2024 Progress Notes Patient:?Abraham VALENTINE Provider:?Philly Womack DPM :1970???Age:53 Y???Sex:Male Jt e:01/21/2024 Phone: Address:[address] [place] [address], [address], [place], [id number] Pcp:Celine Velez Subjective: * Chief Complaints: * ???2wk * HPI: ???Constitutional:? This 53 y/o diabetic male returns to [...] review of systems is noncontributory. * Medical History:? * Surgical History:?left finge r tendon repair * Hospitalization/Major Diagno stic Procedure:?pneumonia sepsis 2022 * Family History:?Father: dece ased, from assault.?Mother: , diabetes at age 69, stroke at age 64.? * Social History:?Tobacco: occasional Alcohol: yes, socially. * Medications:?TakingOmega 3 1 000 MG Capsule as directed Orally Flonase Allergy [...] , Notes to Pharmacist: once a weekTaking [place] 3 1000 MG Capsule as directed Orally [...] reviewed and reconciled with the patient * Allergies:?moldpenicillinno[ Allergies Verified] Objective: * Vitals:?Wt:283.4lbs, Ht: 5ft 11in, BMI:39.52Index, HR:92/min, Temp:96.8F, RR:16/min, Ht-cm: 180.34, Wt-k.55 kg. * Examination: ???General Examination: ???GENERAL: Patient appears well nourished, with NAD. ?VASCULAR: [...] on palpation. ?SHOES: boots. 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 Plan: * Treatment: * Procedure Codes:? * Follow Up:?1 Year * Billing Information: * Visit Code:? 38985 Office Visit, Est Pt., Level 3. * Procedure Codes:? * Sign off status: Completed true * Provider:?Philly Womack DPM Date:? 01/21/2024 Generated for Alistair apodaca/Tee/Anabellaitting on:?12/22/2024 04:08 PM EST History and Physical Notes * HPI (History [...]
--- OUTSIDE RECORDS SUMMARY | 2024-12-22 16:08 | XMS_ITS ---
Demographics Address [address] [facility] [address] [place] [address] Mobile Email Address Preferred Language Unknown Marital Status Unknown Temple Affiliation Unknown Race Unknown Ethnic Group Unknown Author Organization [facility] Address [address] [facility] [address] [place] [address] Care Team Providers Care Passport Application Examiner Name Role Phone Velez Stormruth Primary Care Provider UnavailPHILLY Haskins Unavailable [phone] Allergies Allergen (clinical drug ingredient) Drug/Non Drug Allergy documented on EMR Reaction Allergy Type Onset Date Status mold (uncoded) Unknown Allergy Activ e penicillin (uncoded) Unknown Allergy Active REASON FOR VISIT Lt great toe swollen red, and warm to the touch. PT went to [facility] ER on 12/15/2023 and was prescribed Antibiotics. Medications Medication SIG (Take, Route, Frequency, Duration) [...] nostril Nasally Once a day PRN Active [place] 3 1000 MG as directed Orally Active Problems Problem Type SNOMED Code ICD Code Onset Dates Problem Status W/U Status Risk Notes Problem [id number] Type 2 diabetes mellitus with other diabetic neurological complication (E11.49) Active confirmed Vital Signs Weight 286.2 lbs 01/01/2024 Height 5ft 11in in 01/01/2024 BMI 39.91 kg/m2 01/01/2024 Heart Rate 79 /min 01/01/2024 Temperature 97.2 degrees Fahrenheit 01/01/20 24 Respiratory Rate 16 /min 01/01/2024 Encounters Encounter Location Date Provider Diagnosis [facility] [address] [facility] [address] [place] [address] 01/01/2024 PHILLY WOMACK Subungual hematoma o f [...] Name:PHILLY WOMACK, 01/21/2025 01:00:00 PM, [address] [facility] [address], [place], [address], Progress Notes * Abraham VALENTINEDOB: 2 (53 yo M)Acc No.[id number]:01/01/2024 Progress Notes Patient:?Abraham VALENTINE Provider:?Philly Womack DPM :1970???Age:53 Y???Sex:Male Jt e:01/01/2024 Phone: Address[address] [facility] [address], [id number] Pcp:Celine Velez Subjective: * Chief Complaints: * ???Lt great toe swollen red, and warm to the touch. PT went to [facility] ER on 12/15/2023 and was prescribed Antibiotics. * HPI: ???Constitutional:? This 53 y/o diabetic male presents to my office for a complaint of a resolving infection of his left big toe. He states about 3 weeks ago, he was driving down to [place] for a . He states upon returning from that trip he noticed the toe was black and blue, red, and swollen. He does not recall any injury or trauma to the toe. 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 He went to [facility] emergency room due to his concern of [...] , Notes to Pharmacist: once a weekTaking [place] 3 1000 MG Capsule as directed Orally [...] patient * Allergies:?moldpenicillinno[ Allergies Verified] Objective: * Vitals:?Wt:286.2lbs, Ht: 5ft 11in, BMI:39.91Index, HR:79/min, Temp:97.2F, RR:16/min, Ht-cm: 180.34, Wt-k.82 kg. * Examination: ???General Examination: ???GENERAL: Patient [...] ?SHOES: boots. 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 Plan: * Treatment: * Procedures:?Procedure: The patient's [...] tolerated the procedure well. ? * Procedure Codes:?45005 REMOV AL OF NAIL PLATE, Modifiers: TA * Follow Up:?2 Weeks * Billing Information: * Visit Code:? 06831 Office Visit, New Pt., Level 3. Modifiers: 25 * Procedure Codes:? 79562 REMOVAL OF NAIL PLATE. Modifiers: TA * Sign off status: Completed true * Provider:Juan Antonio Womack DPM Date:? 01/01/2024 Generated for Alistair apodaca/Tee/Anabellaitting on:?12/22/2024 04:08 PM EST History and Physical Notes * HPI (History of Present Illness) Category Sub-Category Detail Notes Category Not es Constitutional This 53 y/o d iabetic male presents to my office for a complaint of a resolving infection of his left big toe. He states about 3 weeks ago, he was driving down to [place] for a . He states upon returning from that trip he noticed the toe was black and blue, red, and swollen. He does not recall any injury or trauma to the toe. 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 He went to [facility] emergency room due to his concern of [...]
--- OUTSIDE RECORDS SUMMARY | 2024-12-22 16:08 | XMS_ITS | Encounter Summary ---
Author Organization [facility] Address [address] [place] [address] Care Team Providers Care Cutter Plastics Rolls Name Role Phone Celine Velez MD Primary Care Provider [phone] Reason for Visit * Reason Onset Date Comments Forms/questionnaires 12/01/2024 Return to ork Encounter Details Date Type Department Care Team ([facility] st Contact Info) Description 12/01/2024 Telephone Adult Medicine [facility] [address] [place] [phone] Titi Roland, [place] [address] [place] [phone] Forms/questionnaires (Return to work ) Social History Tobacco Use Types Packs/Day Years [...] as of this encounter Progress Notes * Celine Nino MA - 12/06/2024 4:06 PM EST Spoke with patient patient will pickling operator form tomorrow. For will be out front in patient pickling operator. * Hodan Mendez - 12/02/2024 1:12 PM EST Pt calling back. Pls call his * Celine Nino MA - 12/02/2024 8:44 AM EST Left message for patient to call back * Titi Roland NP - 12/01/2024 7:30 PM EST Form signed by provider and ready for pickup from provider's out box. Please make a copy of the form, send to scan and notify patient that form is ready for pickup. Thanks documented in this encounter Plan of Treatment Upcoming Encounters Date Type Department Care Team (Late st Contact Info) Description 12/29/2024 2:20 PM EST [facility] [address] [address] Ciera Elaine NP [address] [facility] [address] [place] [address] 03/07/2025 9:30 AM EDT Office Visit Adult Medicine [facility] [address] [place], [place] [phone] Titi Roland NP [address] [place], [place] documented as of this encounter Visit Diagnoses Not on filedocumented in this encounter Additional Health Concerns Assessment Noted Time PHQ-9 Depression Total Score: 0 11/03/20 24 9:00 AM EST documented as of this encounter Care Teams Cutter Plastics Rolls Relationship Specialty Start Date End Date Celnie Velez MD [address] [place], [place] PCP - General Internal Medicine 01/20/12 documented as of this encounter
--- OUTSIDE RECORDS SUMMARY | 2024-12-22 16:08 | XMS_ITS | Patient Health Record ---
Author Organization [facility] Address [address] [facility] [address] [place] [address] Care Team Providers Care Port Purser Name Role Phone Celine Velez Primary Care Provider KOLE Fitzgerald Unavailable [phone] Allergies Allergen (clinical drug ingredient) Drug/Non Drug Allergy documented on EMR Reaction Allergy Type Onset Date Status mold (uncoded) Unknown Allergy Activ e penicillin (uncoded) Unknown Allergy Active Reason For Referral No Information Medications Medication SIG (Take, Route, Frequency, Duration) [...] nostril Nasally Once a day PRN Active [place] 3 1000 MG as directed Orally Active Problems Problem Type SNOMED Code ICD Code Onset Dates Problem Status W/U Status Risk Notes Problem [id number] Type 2 diabetes mellitus with other diabetic neurological complication (E11.49) Active confirmed Vital Signs Heart Rate 92 /min 01/21/2024 Temperature 96.8 degrees Fahrenheit 01/21/2024 Respiratory Rate 16 /min 01/21/2024 Height 5ft 11in in 01/21/2024 Weight 283.4 lbs 01/21/2024 BMI 39.52 kg/m2 01/21/2024 Encounters Encounter Location Date Provider Diagnosis [facility] [address] 01/01/2024 KOLE GODINEZ Subungual hematoma o f toenail, left, sequela S90.222S ; Traumatic onycholysis L60.1 and 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.49 [facility] [address] 01/21/2024 KOLE GODINEZ Subungual hematoma o f toenail, left, sequela S90.222S ; Traumatic onycholysis L60.1 and 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.49 [facility] [address] 01/05/2024 KOLE GODINEZ Assessments Encounter Date Diagnosis (ICD Code) Assessment [...] complication (ICD-10 - E11.49) Plan Of Treatment Next Appt Details Provider Name:KOLE GODINEZ, 01/21/2025 01:00:00 PM, [address] [facility] [address], [place], [address], Insurance Providers Payer Name Payer Address Payer Phone Subscriber Number Group Number Insured Name Patient Relationship to Insured Coverage Start Date Coverage End Date Lea NEUMANN [address] [place] [phone] [id number] Abraham Peralta Self - patient is the insured [facility] [address] [place] [address] [id number] Abraham Peralta Self - patient is the insured Medical (General) History Medical History History ICD Code emphysema type II diabetes obstructive sleep apnea obesity ventral hernia allergic rhinitis GERD (gastroesophageal reflux disease) asthma + COVID 2020 not COVID vaccinated Surgical History Surgery Date(Month/Year) left finger tendon repair Hospitalization History Reason Date(Month/Year) sepsis 2022 pneumonia
--- OUTSIDE RECORDS SUMMARY | 2024-12-22 16:08 | XMS_ITS ---
Demographics Address [address] [place] [address] [address] [place] [address] Mobile Email Address Preferred Language Unknown Marital Status Unknown Moravian Affiliation Unknown Race Unknown Ethnic Group Unknown Author Organization [facility] Address [address] [address] Care Team Providers Care Onion Tier Name Role Phone Rosie Celine Primary Care Provider KOLE Fitzgerald [phone] REASON FOR VISIT Work note Encounters Encounter Location Date Provider Diagnosis [facility] [address] [address] 01/05/2024 KOLE GODINEZ Plan Of Treatment Next Appt Details Provider Name:KOLE GODINEZ, 01/21/2025 01:00:00 PM, [address] [address], [place], [address], Progress Notes * Abraham VALENTINEDOB: [birth year] (53 yo M)Acc No.[id number]:01/05/2024 Patient:?Abraham VALENTINE :1970???Age:53 Y???Sex:Male Phone: Address:[address] [place] [address] [address] [facility] [place] [address] * true * Date:? Generated for Alistair apodaca/Tee/eTransmitting on:?12/22/2024 04:07 PM EST
== END 2024-12-22 14:35 | disposition home or self-care (01) ==
PROVIDERS: PCP Internal Medicine; Visit Provider Physician Assistant
DX: B37.0 Candidal stomatitis (principal); J22 Unspecified acute lower respiratory infection